=== PATIENT | male | born 1990 | race Caucasian/White ===

== ENCOUNTER 2019-08-22 06:01 | Emergency (ER) | payer BC ==
[~2019-08-22] VITALS: Ht 188 cm; Wt 79.5 kg
[~2019-08-22 06:01] MED LIST: FLEXERIL 1010 MG/TAB PO; MOTRIN 800800 MG/TAB PO; NO HOME MEDICATIONS; NORCO 325 MG-51 TAB PO; PERCOCET 325 MG1 TAB PO; PREDNISONE20 MG PO; ZANAFLEX2 MG PO
[2019-08-22 06:03] VITALS: TEMP 97.3
[2019-08-22 06:20] LABS: BASO % 0.4 % (0.0-2.0); EOS # 0.2 (0.0-0.7); EOS % 2.2 % (0-4.0); GRAN % 60.2 % (42.2-75.2); HEMATOCRIT 44.2 % (42.0-52.0); LYMPH # 2.6 (1.2-3.4); LYMPH % 30.7 % (20.0-51.0); MEAN CELL VOLUME 86 fl (80.0-100.0); MEAN CORPUSCULAR HEMOGLOBIN 29 pg (27.0-31.0); MEAN CORPUSCULAR HGB CONC 34 g/dl (33.0-37.0); MEAN PLATELET VOLUME 10.3 fl (7.4-10.4); MONO # 0.5 (0.1-0.6); MONO % 6.1 % (1.7-9.3); PLATELET COUNT 194 K/mm3 (130-400); RED BLOOD COUNT 5.14 M/mm3 (4.20-5.60)
[2019-08-22 06:31] LABS: ALBUMIN 4.6 gm/dL (3.5-5.0); BILIRUBIN,TOTAL 0.3 mg/dL (0.0-1.0); CALCIUM 9.1 mg/dL (8.4-10.2); MAGNESIUM 2.3 mg/dL (1.6-2.3); POTASSIUM 4.3 mmol/L (3.4-5.0); TOTAL PROTEIN 7.5 gm/dL (6.4-8.2)
[2019-08-22 07:05] LABS: TRICYCLIC ANTIDEPRESS URINE NEGATIVE
[2019-08-22 08:50] VITALS: BP 113/93; PULSE 81
== END 2019-08-22 08:50 | disposition home or self-care (01) ==
LOC: COL.ER 06:01
PROVIDERS: Emergency Medicine
DX: F10.129 Alcohol abuse with intoxication, unspecified (principal); F17.210 Nicotine dependence, cigarettes, uncomplicated; Y90.7 Blood alcohol level of 200-239 mg/100 ml
CPT/HCPCS: J7030

== ENCOUNTER 2020-08-30 14:06 | Emergency (ER) | payer SELFPAY ==
[~2020-08-30] VITALS: Ht 188 cm; Wt 72.7 kg
[2020-08-30 14:08] VITALS: TEMP 98
[2020-08-30] MEDS ORDERED: FLEXERIL 1010 MG/TAB PO (14:37)
[2020-08-30] MEDS ORDERED: NORCO 325 MG-51 TAB PO (14:37)
[2020-08-30 15:16] VITALS: BP 131/75; PULSE 85
== END 2020-08-30 15:15 | disposition home or self-care (01) ==
LOC: COL.ER 14:06
DX: S16.1XXA Strain of muscle, fascia and tendon at neck level, initial encounter (principal); M62.838 Other muscle spasm; F17.210 Nicotine dependence, cigarettes, uncomplicated; Z88.0 Allergy status to penicillin; W01.198A Fall on same level from slipping, tripping and stumbling with subsequent striking against other object, initial encounter; Y93.89 Activity, other specified
CPT/HCPCS: J1885